=== PATIENT | female | born 2000 | race Caucasian/White ===

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

== ENCOUNTER 2018-01-13 09:45 | Emergency (ER) | payer OTHER, MEDICAID, SELFPAY ==
[2018-01-13 09:46] VITALS: BP 112/65; PULSE 89; RESP 18; TEMP 36.6; O2SAT 99; BMI 29.5
--- NOTE | 2018-01-13 10:04 | ED.VISSUMM ---
- ER Visit Summary Date of Service: 01/13/18 Chief Complaint: Sore throat History of Present Illness: The patient is a 17 F who has had 4 days of a sore throat. It is worse with swallowing. She has noted swollen tonsils. She has also had a nonproductive cough. No fevers at home. She has been trying leqf-rbq-xupixev medications without any relief. Physical Examination: Vital signs reviewed. HEENT exam reveals posterior oropharyngeal erythema with tonsillar swelling. No exudates are seen. Her neck is supple without lymphadenopathy. Heart is regular rate and rhythm. Lungs clear to auscultation. Abdomen soft nontender. Neurologic exam normal. Test Results: Rapid strep test is negative Emergency Department Course and Treatment: Rapid strep is negative. Patient will be treated with Mucinex D at home. She will follow-up with her PCP Treatment Plan: [] Disposition: Discharge Impression: Viral pharyngitis This note was generated with [employer] dictation software. It may contain incorrect words, spelling, and punctuation that were not noted in review of the chart prior to signing ED Disposition - Plan for ED Patient: Chief Complaint: Sore Throat Referrals: Esperanza Whittaker MD [Primary Care Provider] -
--- NOTE | 2018-01-13 10:22 | NURSING ---
NO LW OR POA
--- NOTE | 2018-01-13 11:11 | ED.DEP ---
ED Disposition - Plan for ED Patient: Disposition: Home or Assisted Living Chief Complaint: Sore Throat Instructions: ED Pharyngitis Viral Prescriptions: Guaifenesin/Pseudoephedrne HCl [Mucinex D ER 1,200-120 mg Tab] 1 ea PO BID #14 tab.er.[id number] Referrals: Esperanza Whittaker MD [Primary Care Provider] -
== END 2018-01-13 11:41 | disposition home or self-care (01) ==
PROVIDERS: Emergency Provider Emergency Medicine; Family Provider Pediatrics; PCP Pediatrics
DX: J02.9 Acute pharyngitis, unspecified (principal); Z72.0 Tobacco use
CPT/HCPCS: 87880; 99282

== ENCOUNTER 2018-03-11 00:20 | Emergency (ER) | payer OTHER, MEDICAID, SELFPAY ==
[2018-03-11 00:21] VITALS: BP 99/64; PULSE 82; RESP 18; TEMP 36.7; O2SAT 98; BMI 34.0
--- NOTE | 2018-03-11 00:38 | ED.DCSUM_ITS ---
- ER Visit Summary Date of Service: 03/11/18 Chief Complaint: Headache History of Present Illness: The patient is a 17 F who presents with a head injury and moderate headache. She states that she was walking and hit her head on a cabinet. This occurred about 5 hours before presentation. She currently complains of a diffuse headache which she rates 6 out of 10. There was no loss of consciousness or amnesia. She is not anticoagulated. She denies nausea or vomiting. Physical Examination: Afebrile vitals normal Moist mucous membranes Heart regular rate and rhythm Lungs clear GCS is 15 with no focal or lateralizing neurological deficits Pupils are equally round reactive to light No evidence of basilar skull fracture such as raccoon eyes hemotympanum or salcedo sign No evidence of trauma such as lacerations contusions hematoma or abrasion. No palpable skull fracture Test Results: Not indicated Emergency Department Course and Treatment: Patient is [place] head CT rule negative. The [facility] clinical policy on minor TBI would also suggest that imaging is not indicated. I believe the risk of radiation from a CT is higher than potential benefit given very low clinical suspicion for skull fracture or intracranial hemorrhage. She was advised that she has signs consistent with a concussion. She was advised on supportive care including brain rest. She was instructed on specific signs and symptoms to monitor for and conditions under which return to the emergency department. All questions answered bedside. Patient agreeable to this plan was discharged home. Treatment Plan: [] Disposition: Discharge Impression: Closed head injury with concussion This note was generated with [employer] dictation software. It may contain incorrect words, spelling, and punctuation that were not noted in review of the chart prior to signing ED Disposition - Plan for ED Patient: Chief Complaint: Headache Referrals: Esperanza Whittaker MD [Primary Care Provider] -
--- NOTE | 2018-03-11 00:38 | ED.DEP ---
ED Disposition - Plan for ED Patient: Chief Complaint: Headache Instructions: ED Concussion Referrals: Esperanza Whittaker MD [Primary Care Provider] -
[2018-03-11 00:45] VITALS: PULSE 82; RESP 18
== END 2018-03-11 00:46 | disposition home or self-care (01) ==
LOC: ED 00:35
PROVIDERS: Emergency Provider Emergency Medicine; Family Provider Pediatrics; PCP Pediatrics
DX: S06.0X0A Concussion without loss of consciousness, initial encounter (principal); W22.8XXA Striking against or struck by other objects, initial encounter; Y93.9 Activity, unspecified; Y92.9 Unspecified place or not applicable; Y99.9 Unspecified external cause status; R05 Cough; Z72.0 Tobacco use
CPT/HCPCS: 99282

== ENCOUNTER 2018-04-02 02:02 | Emergency (ER) | payer OTHER, MEDICAID, SELFPAY ==
[2018-04-02 02:03] VITALS: BP 124/68; PULSE 86; RESP 16; TEMP 36.6; O2SAT 97; BMI 32.5
[2018-04-02] MEDS: predniSONE 20 MG Tablet 40 MG PO (02:16)
[2018-04-02] MEDS: hydrOXYzine 10 MG Tablet PO (02:17)
[2018-04-02 02:25] LABS: Absolute Lymphocyte Count 4.49 X10^3/ul (0.83-4.51); Absolute Neutrophil Count 9.9 X10^3/uL (2.0-7.7); Basophil# 0.09 X10^3/uL; Basophil% 0.6 % (0-1); Eosinophil# 0.26 X10^3/uL; Eosinophils% 1.6 % (0-5); Hematocrit 42.1 % (37-47); Hemoglobin 14.1 g/dl (12.0-15.0); Lymphocyte # 4.49 X10^3/ul (4.0); Lymphocyte % 28.2 % (19-41); Mean Corp Hgb Conc 33.5 g/gl (32-36); Mean Corpuscular Hgb 30.1 pg (27.0-32.0); Mean Corpuscular Volume 89.8 fL (81-99); Mean Platelet Vol. 10.8 fl (6.2-12.0); Monocyte# 1.17 X10^3/uL; Monocyte% 7.3 % (0-10); Neutrophil # 9.89 X10^3/uL (2.7-7.7); Neutrophil % 62.1 % (47-70); POSITIVE COUNT NO; POSITIVE DIFFERENTIAL NO; POSITIVE MORPHOLOGY NO; Platelet Count 281 K/mm3 (150-450); RBC Distribution Width CV 12.8 % (11.6-14.6); RBC Distribution Width SD 41.8 fl (35.1-43.9); Red Blood Count 4.69 M/mm3 (4.2-5.4); White Blood Count 15.9 K/mm3 (4.4-11.0)
[2018-04-02 02:41] LABS: AST(SGOT) 16 U/L (15-37); Alanine Aminotransfer ALT/SGPT 20 U/L (13-56); Albumin, Serum 3.8 g/dL (3.2-5.0); Alkaline Phosphatase 84 U/L (45-117); Anion Gap 8 (5-15); BUN 16 mg/dL (7-18); BUN/Creat Ratio 17.7 RATIO (10-20); Calcium,Total 8.8 mg/dL (8.5-10.1); Chloride 106 mmol/L (98-107); Creatinine, Serum 0.91 mg/dL (0.55-1.02); EST Glomerular Filtration Rate 85 mL/min (>60); Est Glom Filt Rate - Afr Amer 103 mL/min (>60); Estimated Creatinine Clearance 82.25 ml/min; Globulin 3.9 g/dL (2.2-4.2); Glucose 118 mg/dL (74-106); Potassium 3.5 mmol/L (3.5-5.1); Protein, Total 7.7 g/dL (6.4-8.2); Sodium Level 140 mmol/L (136-145)
--- NOTE | 2018-04-02 03:15 | ED.DCSUM_ITS ---
- ER Visit Summary Date of Service: 04/02/18 Chief Complaint: [Rash] History of Present Illness: The patient is a 17 F [presents the emergency department complaint of a rash that started 2 weeks ago. Patient states the rash is very pruritic. Initially they noted that he had changed laundry detergent but then switched back to the old when they were using. Patient denies any new medications. She denies any new soaps. She not had any fever however she has had a slight cough. She describes the rash is pruritic and involving the upper extremities as well as the periumbilical abdomen. Her legs H but there is no rash on her legs. Nobody else at home has the same rash.] Physical Examination: [HEENT-PERRLA, EOMI. Cranial nerves II through XII grossly intact. TMs clear. Mucous membranes moist. No adenopathy. Cardiovascular-regular rate and rhythm without murmur or ectopy Lungs-clear to auscultation, chest wall stable without crepitus or subcu emphysema Abdomen-normoactive bowel sounds, soft, nontender, no rebound or rigidity, no peritoneal signs. Skin exam-patient has a erythematous papular rash involving the upper extremities including the wrists and entered digital region of her hands. Patient has periumbilical lesions as well. In areas where she is scratched there is some ecchymotic almost bruised lesions noted. I suspect these lesions are from scratching and trauma. Extremities-intact ?4, normal range of motion, normal pulses, atraumatic] Test Results: [CBC with differential obtained showed a slightly elevated white blood cell count of 15.9, hemoglobin 14, hematocrit 42, platelets 281. Chemistries unremarkable. LFTs were normal.] Emergency Department Course and Treatment: [She was made given prednisone and Atarax.] Treatment Plan: [I will treat with prednisone and Atarax but I will also add treatment for scabies.] Disposition: [Discharged home in stable condition]. Patient will be referred to dermatology for follow-up if symptoms do not improve. Impression: [Dermatitis-etiology uncertain] This note was generated with [employer] dictation software. It may contain incorrect words, spelling, and punctuation that were not noted in review of the chart prior to signing ED Disposition - Plan for ED Patient: Chief Complaint: Rash Referrals: Esperanza Whittaker MD [Primary Care Provider] -
--- NOTE | 2018-04-02 03:17 | ED.DEP ---
ED Disposition - Plan for ED Patient: Chief Complaint: Rash Instructions: ED Dermatitis Non Specific Rash, Scabies Prescriptions: hydrOXYzine tablet [Atarax tablet] 10 mg PO 4X/DAY PRN PRN #20 tab PRN Reason: Itching Permethrin [Elimite] 60 gm TP X1 #1 cream..g. Prednisone [Deltasone] 20 mg PO BID #10 tab Referrals: Cristobal Wright MD [STAFF PHYSICIAN] - 5-7 Days
== END 2018-04-02 03:28 | disposition home or self-care (01) ==
PROVIDERS: Emergency Provider Emergency Medicine; Family Provider Pediatrics; PCP Pediatrics
DX: L30.9 Dermatitis, unspecified (principal); R05 Cough; Z72.0 Tobacco use
CPT/HCPCS: 36415; 80053; 85025; 99283

== ENCOUNTER 2018-04-11 22:53 | Emergency (ER) | payer OTHER, MEDICAID, SELFPAY ==
[2018-04-11 22:53] VITALS: BP 116/73; PULSE 74; RESP 16; TEMP 36.3; O2SAT 99; BMI 30.9
--- NOTE | 2018-04-11 23:08 | ED.DCSUM_ITS ---
- ER Visit Summary Date of Service: 04/11/18 Chief Complaint: Abdominal pain History of Present Illness: The patient is a 17 F who presents with abdominal pain. Started 3 days ago. Is been intermittent in nature. Sharp in her suprapubic area. It does not radiate. She had vomiting and diarrhea yesterday but none today. No urinary symptoms. Denies fevers. No history of abdominal surgeries in the past. She tried Aleve without any relief. Physical Examination: Vital signs reviewed. HEENT exam unremarkable. Heart is regular rate and rhythm without murmurs. Lungs are clear to auscultation. Abdomen is soft with tenderness in the suprapubic area. Extremities reveal no edema. Skin exam normal. Neurologic exam normal. Test Results: negative. Urinalysis reveals 25-50 white blood cells Emergency Department Course and Treatment: Patient was given Tylenol for pain. She will be treated with Bactrim for her UTI. She will follow-up with her PCP Treatment Plan: [] Disposition: Discharge Impression: Cystitis This note was generated with [employer] dictation software. It may contain incorrect words, spelling, and punctuation that were not noted in review of the chart prior to signing ED Disposition - Plan for ED Patient: Chief Complaint: Abd Pain Referrals: Esperanza Whittaker MD [Primary Care Provider] -
[2018-04-11] MEDS: Acetaminophen 500 MG Tablet 1000 MG PO (23:18)
[2018-04-11 23:33] LABS: Bacteria 0 SEEN /hpf (None Seen); Red Blood Cells-Urine 0 SEEN /hpf (0-5)
[2018-04-11 23:43] LABS: Color, Urine Yellow (Yellow); Glucose, Dipstick Normal (Normal); Internal QC Validated? YES +Cl - CLEAR BKGD; Ketone-Dipstick 5 mg/dl (Negative); Leukocyte Esterase-Dipstick 500 /ul (Negative); Nitrite-Dipstick Negative (Negative); Occult Blood-Urine 25 /ul (Negative); Pregnancy, Urine Negative Negative; Protein-Dipstick 30 mg/dl (Negative); Urine Bilirubin Dipstick Negative (Negative); Urine Clarity Cloudy (Clear); Urine Urobilinogen 1 mg/dl (Normal)
[2018-04-12 00:04] LABS: Mucous, Urine 1+ /hpf (<or=2+); Squamous Epithelial Cells - UA > 100 SEEN /hpf (5-10); White Blood Cells 25-50 SEEN /hpf (0-5)
--- NOTE | 2018-04-12 00:16 | ED.DEP ---
ED Disposition - Plan for ED Patient: Disposition: Home or Assisted Living Chief Complaint: Abd Pain Instructions: ED UTI Cystitis Female Prescriptions: Smz/Tmp Ds [Bactrim Ds] 1 tab PO BID #6 tab Referrals: Esperanza Whittaker MD [Primary Care Provider] -
[2018-04-12] MEDS: Smz/Tmp Ds Tablet 1 TABLET PO (00:30)
== END 2018-04-12 00:31 | disposition home or self-care (01) ==
PROVIDERS: Emergency Provider Emergency Medicine; Family Provider Pediatrics; PCP Pediatrics
DX: N30.90 Cystitis, unspecified without hematuria (principal); R11.2 Nausea with vomiting, unspecified; Z72.0 Tobacco use
CPT/HCPCS: 81001; 81025; 99283

== ENCOUNTER 2018-09-09 23:07 | Emergency (ER) | payer OTHER, MEDICAID, SELFPAY ==
[2018-06-10 13:12] VITALS: BMI 30.9
[2018-09-09 23:08] VITALS: BP 136/75; PULSE 99; RESP 16; TEMP 36.9; O2SAT 98; BMI 33.0
[2018-09-09 23:28] LABS: Bacteria 0 SEEN /hpf (None Seen); Mucous, Urine 0 SEEN /hpf (<or=2+); Red Blood Cells-Urine 0 SEEN /hpf (0-5)
[2018-09-09 23:35] LABS: Color, Urine Yellow (Yellow); Glucose, Dipstick Normal (Normal); Ketone-Dipstick Negative (Negative); Leukocyte Esterase-Dipstick 500 /ul (Negative); Nitrite-Dipstick Negative (Negative); Occult Blood-Urine Negative /ul (Negative); Protein-Dipstick Negative (Negative); Specific Gravity, Urine 1.025 (1.002-1.030); Urine Bilirubin Dipstick Negative (Negative); Urine Clarity Clear (Clear); Urine Urobilinogen 1 mg/dl (Normal)
--- NOTE | 2018-09-09 23:36 | ED.VISSUMM ---
- ER Visit Summary Date of Service: 09/09/18 Chief Complaint: Abdominal pain History of Present Illness: The patient is a 17 F who notes a sharp stabbing suprapubic abdominal pain that radiates bilaterally to lower quadrants. She notes constant. No nausea vomiting. Normal bowel movement today. No urinary symptoms. No fevers. Occasionally worse with walking. Normal p.o. intake. Patient has a phobia of needles and would like to avoid them. Physical Examination: Afebrile vital signs stable Gen: Well-nourished well-developed Head: Normocephalic atraumatic Eyes: Perrl EOMI ENT: TMs clear no rhinorrhea moist mucous membranes Neck: Supple no lymphadenopathy no JVD nontender CVS: Regular rate rhythm no murmurs normal S1-S2 Respiratory: No distress clear to auscultation bilaterally chest nontender Abdomen: Soft tender to palpation in the suprapubic and right lower and left lower quadrants. No guarding or rebound nondistended normal bowel sounds no masses Back: Nontender Extremity: Nontender no edema Skin: Normal color no rash Neuro: alert orientated ?3 CN II-XII intact normal strength sensation reflexes gait cerebellar Psych: Normal affect normal mood Test Results: Urinalysis with some contamination but no infection. CT flank study no ureterolithiasis or appendicitis. There was a 2.2 cm likely ovarian cyst on the right. Emergency Department Course and Treatment: Patient has been resting very comfortably. I would recommend ibuprofen. She does not have a health administration teacher but she states that she has a list of physicians at home that she will follow-up with. Patient is comfortable with the plan. Impression: 1. Right ovarian cyst This note was generated with [employer] dictation software. It may contain incorrect words, spelling, and punctuation that were not noted in review of the chart prior to signing ED Disposition - Plan for ED Patient: Disposition: Home or Assisted Living Instructions: ED Cyst Ovarian Additional Instructions: I would recommend follow-up with gynecology I recommend Motrin 600 800 mg every 6-8 hours as needed
[2018-09-09 23:40] LABS: Internal QC Validated? YES +Cl - CLEAR BKGD; Pregnancy, Urine Negative Negative
[2018-09-09 23:41] LABS: White Blood Cells 5-10 SEEN /hpf (0-5)
[2018-09-09 23:42] LABS: Squamous Epithelial Cells - UA 25-50 SEEN /hpf (5-10)
--- NOTE | 2018-09-09 23:45 | CT_ITS ---
STUDY: CT ABDOMEN AND PELVIS WITHOUT CONTRAST REASON FOR EXAM: Female, 17 years old. Lower abdominal pain RADIATION DOSAGE (If Supplied By Facility): CTDIvol = ( 9.46 ) mGy, DLP = ( 508.24 ) mGycm TECHNIQUE: Transaxial images were obtained from the dome of the diaphragm to the symphysis pubis without oral contrast, and without intravenous contrast. Sagittal and coronal images were reconstructed. Individualized dose optimization techniques were used for this CT. COMPARISON: None. FINDINGS: Evaluation is limited by lack of IV and oral contrast material. The visualized lung bases are unremarkable. The visualized portions of the heart are within normal limits. Normal unenhanced liver. Normal unenhanced gallbladder and extrahepatic biliary system. Borderline splenomegaly 13 cm. Normal unenhanced pancreas. Normal unenhanced bilateral adrenal glands. Normal unenhanced right kidney. Normal unenhanced left kidney. Normal unenhanced visualized stomach. Normal unenhanced small intestine. Normal unenhanced colon. The appendix is visualized and appears normal. Normal unenhanced abdominal aorta. Normal unenhanced inferior vena cava. Normal retroperitoneum. Normal unenhanced urinary bladder. Tiny amount of fluid within the pelvis. 2.2 cm low-attenuation structure within the right adnexa likely ovarian. Pelvic ultrasound may be performed to further evaluate as clinically indicated. There is a small umbilical hernia containing fat. Normal osseous structures. CT/Abdomen/Pelvis without Cont IMPRESSION: No hydronephrosis or nephrolithiasis. Borderline splenomegaly. No CT evidence for acute appendicitis or diverticulitis. Tiny amount of fluid within the pelvis. Small low-attenuation structure right adnexa likely ovarian. Be further evaluated with pelvic ultrasound as clinically indicated. Other findings as discussed above. Electronically Signed: Valentin Santiago, at 0:22 EDT Tel , Service support ,
[2018-09-10 00:31] VITALS: BP 132/60; PULSE 79; RESP 18; O2SAT 98
== END 2018-09-10 00:31 | disposition home or self-care (01) ==
PROVIDERS: Emergency Provider Emergency Medicine; Family Provider Pediatrics; PCP Pediatrics
DX: N83.201 Unspecified ovarian cyst, right side (principal); Z72.0 Tobacco use
CPT/HCPCS: 74176; 81001; 81025; 99282

== ENCOUNTER 2019-02-21 12:01 | Emergency (ER) | payer SELFPAY ==
[2018-10-13 12:48] VITALS: BMI 33.0
[2019-02-21 12:02] VITALS: BP 131/86; PULSE 72; RESP 17; TEMP 36.8; O2SAT 96; BMI 32.9
[2019-02-21 12:52] LABS: Absolute Lymphocyte Count 3.94 X10^3/uL (0.83-4.51); Absolute Neutrophil Count 5.2 X10^3/uL (2.0-7.7); Basophil# 0.07 X10^3/uL; Basophil% 0.7 % (0-1); Eosinophil# 0.11 X10^3/uL; Eosinophils% 1.1 % (0-5); Hematocrit 43.5 % (37-47); Hemoglobin 14.1 g/dL (12.0-15.0); Lymphocyte # 3.94 X10^3/ul (4.0); Mean Corp Hgb Conc 32.4 g/dL (32-36); Mean Corpuscular Hgb 30.1 pg (27.0-32.0); Mean Corpuscular Volume 92.9 fL (81-99); Mean Platelet Vol. 10.7 fl (6.2-12.0); Monocyte# 0.71 X10^3/uL; NRBC Flagged by Analyzer 0 % (0-5); Neutrophil # 5.21 X10^3/uL (2.7-7.7); Neutrophil % 51.5 % (47-70); Platelet Count 234 K/mm3 (150-450); RBC Distribution Width CV 12.5 % (11.6-14.6); RBC Distribution Width SD 42.5 fl (35.1-43.9); Red Blood Count 4.68 M/mm3 (4.2-5.4); White Blood Count 10.1 K/mm3 (4.4-11.0)
[2019-02-21 12:57] LABS: Internal QC Validated? YES +Cl - CLEAR BKGD; Pregnancy, Serum, hCG Quali. NEGATIVE Negative
[2019-02-21 13:01] LABS: Mucous, Urine 0 SEEN /hpf (<or=2+); Red Blood Cells-Urine 0 SEEN /hpf (0-5)
[2019-02-21 13:05] LABS: Color, Urine Yellow (Yellow); Glucose, Dipstick Normal (Normal); Ketone-Dipstick 5 mg/dl (Negative); Leukocyte Esterase-Dipstick 500 /ul (Negative); Nitrite-Dipstick Negative (Negative); Occult Blood-Urine 25 /ul (Negative); Protein-Dipstick 15 mg/dl (Negative); Urine Bilirubin Dipstick Negative (Negative); Urine Clarity Sl. Cloudy (Clear); Urine Urobilinogen Normal (Normal); Urine pH 6.5 (5.0 - 8.0)
[2019-02-21 13:23] LABS: Bacteria 2+ /hpf (None Seen); Squamous Epithelial Cells - UA 10-25 SEEN /hpf (5-10); White Blood Cells 25-50 SEEN /hpf (0-5)
--- NOTE | 2019-02-21 13:39 | ED.VISSUMM ---
- ER Visit Summary Date of Service: 02/21/19 Chief Complaint: [Abdominal pain] History of Present Illness: The patient is a 18 F [resents to the emergency department with abdominal pain that started 2 days ago. Patient describes intermittent pain that lasts anywhere from 15 to 30 minutes. Patient states pain is crampy and sharp at times. Patient denies any nausea or vomiting. Denies any blood in her stool or black tarry stools. States that she is late on her menstrual period and that her last period was the end of December. Patient states that she took 2 home tests and both initially were negative but then later in the day or the following morning it looked as if though they may be positive and patient comes in for evaluation. Patient is G0, P0. Has any vaginal discharge or abnormal bleeding.] Physical Examination: [HEENT-PERRLA, EOMI. Cranial nerves II through XII grossly intact. TMs clear. Mucous membranes moist. No adenopathy. Cardiovascular-regular rate and rhythm without murmur or ectopy Lungs-clear to auscultation, chest wall stable without crepitus or subcu emphysema Abdomen-normoactive bowel sounds, soft, nontender, no rebound or rigidity, no peritoneal signs. Extremities-intact ?4, normal range of motion, normal pulses, atraumatic] Test Results: [CBC with differential obtained was normal. hCG serum was negative. Urinalysis obtained showed 500 leukocyte esterase as well as 25-50 WBCs and 10-25 epis as well as +2 bacteria.] Emergency Department Course and Treatment: [She was treated with Bactrim DS 1 tablet p.o.] Treatment Plan: [Follow-up with her primary care physician within next 3 to 5 days. Patient will be given a prescription for Bactrim for 3 days.] Disposition: [Discharged home in stable condition] Impression: [UTI Abdominal pain] This note was generated with [employer] dictation software. It may contain incorrect words, spelling, and punctuation that were not noted in review of the chart prior to signing ED Disposition - Plan for ED Patient: Referrals: Esperanza Whittaker MD [Primary Care Provider] -
--- NOTE | 2019-02-21 13:42 | ED.DEP ---
ED Disposition - Plan for ED Patient: Instructions: ABDOMINAL PAIN, Unknown Cause, (Female), Bladder Infection, Female (Adult) Prescriptions: Smz/Tmp Ds [Bactrim Ds] 1 tab PO BID #6 tab Prescription Printed Referrals: Esperanza Whittaker MD [Primary Care Provider] - 3-5 Days
[2019-02-21 13:53] VITALS: RESP 15
[2019-02-21] MEDS: Smz/Tmp Ds Tablet 1 TABLET PO (13:53)
== END 2019-02-21 13:56 | disposition home or self-care (01) ==
LOC: ED 12:54
PROVIDERS: Emergency Provider Emergency Medicine; Family Provider Pediatrics; PCP Pediatrics
DX: N39.0 Urinary tract infection, site not specified (principal); R10.9 Unspecified abdominal pain; Z72.0 Tobacco use
CPT/HCPCS: 81001; 84703; 85025; 99284; A4216

== ENCOUNTER → 2020-06-05 | Outpatient (CLI) | payer MEDICAID, SELFPAY ==
[2020-06-05 10:10] VITALS: BMI 29.5
[2020-06-05 13:49] LABS: Amphetamine Urine VISTA NEGATIVE (<1000 ng/mL); Barbiturate Urine VISTA NEGATIVE (< 200 ng/mL); Benzodiazepine Urine VISTA NEGATIVE (< 200 ng/mL); Cocaine Urine VISTA NEGATIVE (< 300 ng/mL); Ecstacy Urine VISTA NEGATIVE (< 500 ng/mL); Methadone Urine VISTA NEGATIVE (< 300 ng/mL); PCP Urine VISTA NEGATIVE (< 25 ng/mL); THC Urine VISTA POSITIVE (< 50 ng/mL); Vista UDS pH Range 5
[2020-06-07 20:08] LABS: Chlamydia By Nucleic Acid AMP Positive (Negative)
[2020-06-07 20:39] LABS: Gonococcus By Nucleic Acid AMP Negative (Negative)
== END | disposition home or self-care (01) ==
PROVIDERS: Obstetrics & Gynecology; PCP Pediatrics; Visit Provider Obstetrics & Gynecology
DX: Z34.90 Encounter for supervision of normal pregnancy, unspecified, unspecified trimester (principal)
CPT/HCPCS: 80307; 87086; 87088; 87491; 87591

== ENCOUNTER → 2020-06-14 13:58 | Outpatient (CLI) | payer MEDICAID, SELFPAY ==
[2020-06-05 10:10] VITALS: BMI 29.5
[2020-06-14 14:49] LABS: Absolute Lymphocyte Count 4.23 X10^3/uL (0.83-4.51); Basophil# 0.06 X10^3/uL; Basophil% 0.5 % (0-1); Eosinophil# 0.12 X10^3/uL; Hematocrit 37.6 % (37-47); Hemoglobin 12.6 g/dL (12.0-15.0); Lymphocyte # 4.23 X10^3/ul (4.0); Lymphocyte % 34.3 % (19-41); Mean Corp Hgb Conc 33.5 g/dL (32-36); Mean Corpuscular Hgb 30.7 pg (27.0-32.0); Mean Corpuscular Volume 91.5 fL (81-99); Mean Platelet Vol. 10.8 fl (6.2-12.0); Monocyte# 0.79 X10^3/uL; Monocyte% 6.4 % (0-10); NRBC Flagged by Analyzer 0 % (0-5); Neutrophil # 7.03 X10^3/uL (2.7-7.7); Neutrophil % 57.1 % (47-70); Platelet Count 204 K/mm3 (150-450); RBC Distribution Width SD 42.5 fl (35.1-43.9); Red Blood Count 4.11 M/mm3 (4.2-5.4); White Blood Count 12.3 K/mm3 (4.4-11.0)
[2020-06-14 15:43] LABS: HIV - WCH Non-Reactive (Nonreactive); Hepatitis B Surface Antigen Non-Reactive (Nonreactive); Hepatitis C Antibody Non-Reactive (Nonreactive); Rubella IgG Reactive (Nonreactive)
[2020-06-14 18:56] LABS: Neisserai gonorrhoeae by PCR Negative (Negative); Probe Check PASS
[2020-06-14 18:57] LABS: Chlamydia Trachomatis by PCR POSITIVE (Negative)
[2020-06-15 03:40] LABS: Rapid Plasmin Reagin (RPR) NONREACTIVE (NONREACTIVE)
== END ==
PROVIDERS: Obstetrics & Gynecology; PCP Pediatrics; Referring Provider Obstetrics & Gynecology; Visit Provider Obstetrics & Gynecology
DX: Z34.81 Encounter for supervision of other normal pregnancy, first trimester (principal); Z31.430 Encounter of female for testing for genetic disease carrier status for procreative management
CPT/HCPCS: 36415; 85025; 86592; 86703; 86762; 86803; 86850; 86900; 86901; 87340; 87491; 87591

== ENCOUNTER 2020-06-25 23:46 | Emergency (ER) | payer MEDICAID, SELFPAY ==
[2020-06-05 10:10] VITALS: BMI 29.5
[2020-06-25 23:48] VITALS: BP 140/85; PULSE 110; RESP 16; TEMP 36.8; O2SAT 97; BMI 31.9
--- NOTE | 2020-06-26 00:22 | ED.DCSUM_ITS ---
History of Present Illness Chief Complaint: Vag Bld, Preg Informant: Patient Issue: Vaginal bleeding. Negative for: Passing clots, Passing tissue Onset: Today Context: Sudden Onset - when wiped after urinating Timing: Intermittent Current Severity: Spotting Maximum Severity: Spotting Associated Symptoms: Negative for: Dysuria, Frequency, Urgency, Hematuria P: 0 Ab: 0 Narrative: Patient states she is about 14 weeks, she started spotting tonight and became scared, she denies having any pain, lightheadedness, near syncope, or any other symptoms or recent illness. This is her first . She does not know her blood type. 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 Comment: FOB needs tested Past Medical History - Allergies and Home Meds Allergies/Adverse Reactions: Allergies amoxicillin trihydrate [From Augmentin] Adverse Reaction (Verified 06/25/20 23:47) Nausea potassium clavulanate [From Augmentin] Adverse Reaction (Verified 06/25/20 23:47) Nausea Primary Care Physician: Esperanza Whittaker MD [Primary Care Provider] - Surgical History: myringotomy Smoking Status: Never smoker Review of Systems General: Denies: Chills, Fever, Sweats Eyes: Denies: Visual changes - bilaterally, Diplopia ENT: Denies: Rhinorrhea, Sore throat Cardiovascular: Denies: Chest pain, Palpitations Respiratory: Denies: Dyspnea, Cough, Dyspnea on exertion Gastrointestinal: Denies: Abdominal pain, Nausea, Vomiting, Diarrhea, Melena, Hematochezia Genitourinary: Reports: - - vaginal spotting. Denies: Dysuria, Hematuria, Frequency Musculoskeletal: Denies: Myalgias, Back pain, Swelling, Extremity Pain Skin: Denies: Rash, Wounds Neurological: Denies: Headache, Weakness, Numbness Physical Exam Vital Signs/Narrative: Vital Signs Temp Pulse Resp BP Pulse Ox 06/25/20 23:48 98.3 F 110 H 16 140/85 H 97 Inital Vital Signs reviewed: Yes General: Well nourished, Well developed Head: Normocephalic, Atraumatic Eyes: Perrl, EOMI ENT: Moist mucous membranes, No rhinorrhea Neck: Supple, Nontender Cardiovascular: Regular rate, Regular rhythm, No murmurs, Tachycardia - mild Respiratory: No distress, CTA bilaterally, Chest nontender Abdomen: Soft, Nontender, Nondistended, Normal bowel sounds Back: Nontender, Normal Inspection. Negative for: CVA tenderness Extremities: Nontender, No edema Skin: Normal color, No rash, No Trauma Neurological: Alert, Oriented x3, Cranial nerves II-XII grossly intact, Normal Strength, Normal Sensation, Normal Gait Psychological: Normal Mood, - - anxious Diagnostic/Tx/Re-eval - Medical Decision/Diagnostic Studies Bedside ultrasound performed by myself shows single live intrauterine , active, with heart rate 150. 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 Her blood type is in the system already, she is a positive so RhoGam is not indicated. We discussed reasons to return and she is comfortable with this plan. ED Disposition - Plan for ED Patient: Disposition: Home or Assisted Living Diagnosis: Threatened in second trimester Instructions: ED Possible Miscarriage ... Referrals: Elma Velasco MD [STAFF PHYSICIAN] - (1-5 days -- call for appt)
== END 2020-06-26 00:36 | disposition home or self-care (01) ==
LOC: ED 06-26 00:30
PROVIDERS: Emergency Provider Emergency Medicine; PCP Pediatrics
DX: O20.0 Threatened abortion (principal); Z14.1 Cystic fibrosis carrier; Z3A.14 14 weeks gestation of pregnancy
CPT/HCPCS: 99282

== ENCOUNTER → 2020-08-03 | Outpatient (CLI) | payer MEDICAID, SELFPAY ==
[2020-08-03 09:59] VITALS: BMI 35.4
[2020-08-03 16:13] LABS: Chlamydia Trachomatis by PCR POSITIVE (Negative); Neisserai gonorrhoeae by PCR Negative (Negative); Probe Check PASS
== END | disposition home or self-care (01) ==
LOC: LABSPEC 12:11
PROVIDERS: PCP Pediatrics; Referring Provider Obstetrics & Gynecology; Visit Provider Obstetrics & Gynecology
DX: Z34.90 Encounter for supervision of normal pregnancy, unspecified, unspecified trimester (principal)
CPT/HCPCS: 87491; 87591

== ENCOUNTER 2020-08-05 17:54 | Emergency (ER) | payer MEDICAID, SELFPAY ==
[2020-08-03 09:59] VITALS: BMI 35.4
[2020-08-05 17:55] VITALS: BP 121/63; PULSE 107; RESP 16; TEMP 36.6; O2SAT 97; BMI 35.4
--- NOTE | 2020-08-05 18:06 | US_ITS ---
STUDY: SECOND AND THIRD TRIMESTER OBSTETRICAL ULTRASOUND - LIMITED REASON FOR EXAM: Female, 19 years old fell down 10 steps onto left side. LMP: 03/20/2020 PRIOR ULTRASOUND: None. TECHNIQUE: Transabdominal TECHNICAL QUALITY: Adequate. FINDINGS: There is a single intrauterine fetus. The fetus is in a breech presentation. There is demonstrated cardiac activity with a heart rate of 149 bpm. There is a normal amniotic fluid volume. The largest amniotic fluid pocket measures 4.1 cm. The placenta is posterior in location and is not low lying. There are Grade 0 placental changes. The cervix measures 4.0 cm in length. BIOMETRY: BPD: 4.59 cm: 19 weeks, 6 days HC: 17.23 cm: 19 weeks, 5 days AC: 14.43 cm: 19 weeks, 5 days FL: 3.06 cm: 19 weeks, 3 days Age by LMP: 19 weeks, 5 days. SUSHMA by LMP: 12/25/2020. age by current US: 19 weeks, 5 days. SUSHMA by current US: 12/25/2020. Estimated weight: 306 grams, +/- 46 grams, 42 percentile. Gender: Male US/OB Limited With Biometrics IMPRESSION: 1. Live single intrauterine at 19 weeks, 5 days. SUSHMA is 12/25/2020. 2. EFW of 306 g. 3. Adequate amniotic fluid. 4. Posterior grade 0 placenta. There is no evidence of placental abruption. 5. Closed cervix at 4 cm length. 6. Breech presentation. Electronically Signed: Angelo Plata DO at 20:52 EST Tel [phone], Service support ,
--- NOTE | 2020-08-05 18:10 | ED.DCSUM_ITS ---
- ER Visit Summary Date of Service: 08/05/20 Chief Complaint: Fall History of Present Illness: The patient is a 19 F presenting after fall. Patient is 20 weeks , G1, P0. She states she slipped on steps and fell down approximately 10 steps. She slid on her left lower back and side. She denies vaginal bleeding or abdominal pain. She did not hit her head or lose consciousness. She complains of left ankle pain as well. She is able to ambulate. She denies other injuries. Physical Examination: Vitals are stable. Patient is afebrile. Alert no acute distress. HEENT exam is unremarkable. Neck is nontender Lungs are clear and equal bilaterally. Heart is regular rate and rhythm. Abdomen is soft gravid nontender Back: Left paraspinal lumbar muscle tenderness, no midline tenderness Extremities mild left ankle tenderness with no deformity Skin is warm and dry. Remainder of exam is unremarkable. Emergency Department Course and Treatment: She was given Tylenol. Blood type A positive. Left ankle x-ray shows negative left ankle x-rays. Abdominal ultrasound shows Normal ultrasound of the kidneys and urinary bladder. Normal appearing spleen. No other sonographic abnormality of the left upper abdomen. Pelvic ultrasound shows Live single intrauterine at 19 weeks, 5 days. SUSHMA is 12/25/2020. On reevaluation, patient is resting comfortably. Discussed with Dr. De La Fuente. Patient will follow up in the office. Advised return to the ED for worsening complaints. Disposition: Discharge home Impression: Status post mechanical fall, left flank pain, This note was generated with [employer] dictation software. It may contain incorrect words, spelling, and punctuation that were not noted in review of the chart prior to signing ED Disposition - Plan for ED Patient: Instructions: Care for a Healthy Baby, ED Mechanical Fall Referrals: Esperanza Whittaker MD [Primary Care Provider] - Elma Velasco MD [STAFF PHYSICIAN] -
[2020-08-05] MEDS: Acetaminophen 500 MG Tablet 1000 MG PO (18:13)
--- NOTE | 2020-08-05 18:14 | US_ITS ---
STUDY: RENAL ULTRASOUND - COMPLETE REASON FOR EXAM: Female, 19 years old. Fell down 10 steps onto left side. Patient is 20 weeks . TECHNIQUE: Ultrasound evaluation of the kidneys was performed with real-time and static lee-scale imaging. COMPARISON: None. FINDINGS: RIGHT KIDNEY: Normal location of the right kidney, which is normal in size. The right kidney measures 11.2 cm. There is a normal cortex of the right kidney. The renal cortex measures 1.9 cm. There is no right renal mass or cyst. There are no right renal calculi. There is no right hydronephrosis. DISTAL RIGHT URETER: There is non-visualization of the distal right ureter. There is no demonstrated right ureterovesical junction calculus. There is a visualized right ureteral jet. LEFT KIDNEY: Normal location of the left kidney, which is in the in size. The left kidney measures 12 point cm. There is a normal cortex of the left kidney. The renal cortex measures 2.1 cm. There is no left renal mass or cyst. There are no left renal calculi. There is no left hydronephrosis. DISTAL LEFT URETER: There is non-visualization of the distal left ureter. There is no demonstrated left ureterovesical junction calculus. There is a visualized left ureteral jet. The spleen measures 11.8 x 5 x 5.8 cm and is grossly unremarkable. BLADDER: The distended urinary bladder has a volume of 100 ml. There is a normal wall thickness of the distended urinary bladder. There is no demonstrated mass within the urinary bladder. There are no demonstrated bladder calculi. US/Kidney and Bladder IMPRESSION: 1. Normal ultrasound of the kidneys and urinary bladder. 2. Normal appearing spleen. 3. No other sonographic abnormality of the left upper abdomen. Electronically Signed: Angelo Plata DO at 20:59 EST Tel [phone], Service support ,
--- NOTE | 2020-08-05 18:15 | RAD_ITS ---
EXAM: XR LEFT ANKLE COMPLETE, 3 OR MORE VIEWS CLINICAL INDICATION: FALL DOWN STEPS, PAIN TECHNIQUE: Frontal, lateral and oblique views of the left ankle. This report was created using miCab report generation technology. COMPARISON: None. FINDINGS: BONES/JOINTS: Unremarkable. No acute fracture. No subluxation. Normal alignment. Preservation of the joint space. No sclerotic or destructive changes observed. SOFT TISSUES: Unremarkable. No soft tissue swelling or gas. No radiopaque foreign body. RAD/Ankle min 3 Views IMPRESSION: Negative left ankle x-rays. Electronically Signed: Sarkis Nicholson MD ([place]) at 18:32 EST , Service support ,
[2020-08-05 21:22] VITALS: BP 117/56; PULSE 90; RESP 16; TEMP 36.7; O2SAT 97
--- NOTE | 2020-08-05 21:56 | ED.DEP ---
ED Disposition - Plan for ED Patient: Instructions: ED Mechanical Fall, Care for a Healthy Baby Referrals: Esperanza Whittaker MD [Primary Care Provider] - Elma Velasco MD [STAFF PHYSICIAN] -
== END 2020-08-05 22:06 | disposition home or self-care (01) ==
LOC: ED 18:40
PROVIDERS: Emergency Provider Emergency Medicine; PCP Pediatrics
DX: O26.892 Other specified pregnancy related conditions, second trimester (principal); R10.9 Unspecified abdominal pain; M25.572 Pain in left ankle and joints of left foot; W10.9XXA Fall (on) (from) unspecified stairs and steps, initial encounter; Y93.9 Activity, unspecified; Y92.9 Unspecified place or not applicable; Y99.9 Unspecified external cause status; Z3A.20 20 weeks gestation of pregnancy
CPT/HCPCS: 73610; 76770; 76816; 86900; 86901; 99282

== ENCOUNTER → 2020-08-31 16:28 | Outpatient (CLI) | payer MEDICAID, SELFPAY ==
[2020-08-31 15:49] VITALS: BMI 36.1
[2020-08-31 17:20] LABS: Amphetamine Urine VISTA NEGATIVE (<1000 ng/mL); Barbiturate Urine VISTA NEGATIVE (< 200 ng/mL); Benzodiazepine Urine VISTA NEGATIVE (< 200 ng/mL); Cocaine Urine VISTA NEGATIVE (< 300 ng/mL); Ecstacy Urine VISTA NEGATIVE (< 500 ng/mL); Methadone Urine VISTA NEGATIVE (< 300 ng/mL); PCP Urine VISTA NEGATIVE (< 25 ng/mL); THC Urine VISTA POSITIVE (< 50 ng/mL); Vista UDS pH Range 5
[2020-08-31 19:55] LABS: Chlamydia Trachomatis by PCR POSITIVE (Negative); Neisserai gonorrhoeae by PCR Negative (Negative)
[2020-08-31 19:56] LABS: Probe Check PASS
== END ==
PROVIDERS: PCP Pediatrics; Referring Provider Obstetrics & Gynecology; Visit Provider Obstetrics & Gynecology
DX: O98.819 Other maternal infectious and parasitic diseases complicating pregnancy, unspecified trimester (principal); A74.9 Chlamydial infection, unspecified; O99.320 Drug use complicating pregnancy, unspecified trimester; F12.10 Cannabis abuse, uncomplicated; Z3A.00 Weeks of gestation of pregnancy not specified
CPT/HCPCS: 80307; 87491; 87591

== ENCOUNTER → 2020-09-27 09:32 | Outpatient (CLI) | payer MEDICAID, SELFPAY ==
[2020-08-31 15:49] VITALS: BMI 36.1
[2020-09-27 09:55] LABS: Absolute Lymphocyte Count 3.35 X10^3/uL (0.83-4.51); Absolute Neutrophil Count 6.6 X10^3/uL (2.0-7.7); Basophil# 0.05 X10^3/uL; Basophil% 0.5 % (0-1); Eosinophils% 0.9 % (0-5); Hematocrit 31.6 % (37-47); Hemoglobin 10.3 g/dL (12.0-15.0); Lymphocyte # 3.35 X10^3/ul (4.0); Lymphocyte % 30.8 % (19-41); Mean Corp Hgb Conc 32.6 g/dL (32-36); Mean Corpuscular Hgb 29.8 pg (27.0-32.0); Mean Corpuscular Volume 91.3 fL (81-99); Mean Platelet Vol. 12.2 fl (6.2-12.0); Monocyte# 0.64 X10^3/uL; Monocyte% 5.9 % (0-10); NRBC Flagged by Analyzer 0 % (0-5); Neutrophil # 6.55 X10^3/uL (2.7-7.7); Neutrophil % 60.1 % (47-70); POSITIVE COUNT YES; RBC Distribution Width CV 13.4 % (11.6-14.6); RBC Distribution Width SD 43.6 fl (35.1-43.9); Red Blood Count 3.46 M/mm3 (4.2-5.4); White Blood Count 10.9 K/mm3 (4.4-11.0)
[2020-09-27 09:57] LABS: Glucose Challenge Gest 1H 50g 149 mg/dL (70-140)
[2020-09-27 10:18] LABS: Differential Indicated SCAN CRITERIA MET
[2020-09-27 10:20] LABS: Platelet Estimate MOD DEC (ADEQ)
== END ==
PROVIDERS: PCP Pediatrics; Referring Provider Obstetrics & Gynecology; Visit Provider Obstetrics & Gynecology
DX: Z34.90 Encounter for supervision of normal pregnancy, unspecified, unspecified trimester (principal); Z13.1 Encounter for screening for diabetes mellitus
CPT/HCPCS: 36415; 82950; 85025

== ENCOUNTER → 2022-10-09 | Outpatient (CLI) | payer MEDICAID, SELFPAY | END | disposition home or self-care (01) | PROVIDERS: PCP Pediatrics; Visit Provider Physician Assistant | DX: J02.9 Acute pharyngitis, unspecified (principal) | CPT/HCPCS: 87880 ==

== ENCOUNTER → 2023-06-11 | Outpatient (CLI) | payer MEDICAID, SELFPAY ==
[2023-06-17 20:07] LABS: Chlamydia By Nucleic Acid AMP Negative (Negative); Gonococcus By Nucleic Acid AMP Negative (Negative)
== END | disposition home or self-care (01) ==
PROVIDERS: Visit Provider Obstetrics & Gynecology
DX: Z34.90 Encounter for supervision of normal pregnancy, unspecified, unspecified trimester (principal); Z3A.00 Weeks of gestation of pregnancy not specified
CPT/HCPCS: 87086; 87491; 87591

== ENCOUNTER 2023-07-16 01:19 | Emergency (ER) | payer MEDICAID, SELFPAY ==
[2023-07-16 01:22] VITALS: BP 129/73; PULSE 87; RESP 18; TEMP 36.6; O2SAT 97; BMI 36.3
[2023-07-16 01:31] VITALS: BP 127/65; PULSE 86; RESP 16; O2SAT 97
[2023-07-16 01:45] VITALS: BP 116/65; PULSE 73; RESP 16; O2SAT 97
--- OUTSIDE RECORDS SUMMARY | 2023-07-16 01:59 | XMS RPT_ITS | CCD ---
Author Name Unknown Address [address] [place] [address] Organization [facility] Care Team Providers Care Business Ethics Professor Name Role Phone Genet Link LPN Unavailable [phone] Tevin Sagastume Unavailable [phone] YANCI PATTERSON MD Consulting Unavailable STAR ELLINGTON Attending Unavailable STAR ELLINGTON Primary Care Unavailable STAR ELLINGTON Admitting Unavailable YANCI PATTERSON MD Referring Unavailable PROVIDER, UNKNOWN Consulting Unavailable Allergies Allergy Classification Reported Allergen(s) Allergy Type Date of Onset Reaction(s) Facility (1 source) Amoxicillin / Clavulanate Drug Allergy [facility] Repository Problems Problem Classification Problem Date Documented Da te Episodic/Chronic Medical examination/evaluation (2 sources) Encounter for pre-employment examination; Translations: [Encounter for pre-employment examination] Onset: 10-16-2016 10-16-2016 Episodic Results Test Name Value Interpretation Reference Range Facil ity Vital Signs Date Time Vital Sign Value Performing Clinician Faci lity 10-16-2016 14:03-0400 BMI (Body Mass Index) 32.59 kg/m2 Tevin PASTOR [facility] Work Phone: 10-16-2016 14:03-0400 Body Temperature 98.1 [degF] Tevin PASTOR [facility] Work Phone: 10-16-2016 14:03-0400 BP Diastolic 76 mm[Hg] Tevin PASTOR [facility] Work Phone: 10-16-2016 14:03-0400 BP Systolic 114 mm[Hg] Tevin Elmo PASTOR [facility] Work Phone: 10-16-2016 14:03-0400 Height 160.02 cm Tevin Borrego DARBY [facility] Work Phone: 10-16-2016 14:03-0400 Pulse (Heart Rate) 67 /min Tevin PASTOR [facility] Work Phone: 10-16-2016 14:03-0400 Pulse Oximetry 98 % Tevintessa PASTOR [facility] Work Phone: 10-16-2016 14:03-0400 Respiratory Rate 16 /min Tevin Elmo PASTOR [facility] Work Phone: 10-16-2016 14:03-0400 Weight 83.46 kg Tevin Posadasriley PASTOR [facility] Work Phone: Encounters Encounter Date Encounter Type Care Provider Facility Start: 05-26-2023 End: 05-26-2023 Emergency department patient visit YANCI WINN [facility] Procedures Date Procedure Procedure Detail Performing Clinician Start: 05-26-2023 Urinalysis YANCI KELLER Plan of Treatment Date Care Activity Detail Author Start: 10-16-2016 End: 10-16-2016 Appointment Appointment [facility] Work Phone: [facility] Work Phone: Payers Date Payer Category Payer Unknown [id number] Unknown [id number] Progress note 11-16-2020 Note Date & Type Note Facility 11-16-2020 Note HNO ID: [id number] Author: Clint Hernandez APRN.WATERWORKS OPERATOR Service: ? Author Type: Nurse Practitioner Type: Progress Notes Filed: 11/16/2020 12:19 PM Note Text: This note was created using NoteWriter. Subjective Rachel Aguiar is a 19 year old female. HPI Patient is a healthy nontoxic-appearing 19-year-old female with past medical history of anemia in , conjunctivitis, anxiety, cystic fibrosis carrier presents to the office today complaining of left eye redness. Patient states last night she noticed right becoming slightly red or when she woke up today was worse. Patient states she does have itching sensation and some light sensitivity with a gritty sensation to the left eye and a watery discharge. Patient denies any injuries trauma or falls. Patient denies any headache pain. Patient does complain of some blurry vision however states she does normally wear contacts. Patient states she has been unable to wear them due to the irritation to the left eye. Patient denies any ear pain, sore throat, chest pain, shortness of breath difficulty breathing. Patient denies any abdominal pain, nausea or vomiting. Patient denies any fever, shaking, or chills. Review of Systems Constitutional: Negative. HENT: Negative. Eyes: Positive for photophobia, discharge, redness and itching. Negative for pain and visual disturbance. Respiratory: Negative. Cardiovascular: Negative. Musculoskeletal: Negative. Skin: Negative. Neurological: Negative for headaches. Objective BP 108/64 Pulse 102 Temp 36.8 ?C (98.3 ?F) (Tympanic) Resp 16 Wt 101.2 kg (223 lb) LMP 04/19/2018 SpO2 98% Physical Exam Vitals and nursing note reviewed. Constitutional: General: She is not in acute distress. Appearance: Normal appearance. She is not ill-appearing, toxic-appearing or diaphoretic. HENT: Head: Normocephalic. Eyes: General: No scleral icterus. Right eye: No discharge. Left eye: Discharge present. Extraocular Movements: Extraocular movements intact. Pupils: Pupils are equal, round, and reactive to light. Cardiovascular: Rate and Rhythm: Normal rate and regular rhythm. Pulses: Normal pulses. Heart sounds: Normal heart sounds. No murmur heard. No friction rub. No gallop. Pulmonary: Effort: Pulmonary effort is normal. No respiratory distress. Breath sounds: Normal breath sounds. No stridor. No wheezing, rhonchi or rales. Chest: Chest wall: No tenderness. Musculoskeletal: General: Normal range of motion. Cervical back: Normal range of motion and neck supple. Skin: General: Skin is warm and dry. Capillary Refill: Capillary refill takes less than 2 seconds. Neurological: General: No focal deficit present. Mental Status: She is alert and oriented to person, place, and time. Assessment and Plan Given patient's complaint presentation thorough exam of the left eye was performed. Patient's left sclera is red and injected, right sclera is clear and normal-appearing, EOMs are intact bilaterally with no nystagmus diplopia, red light reflex is intact, patient shae neurologically intact no focal deficits, denies any headache pain, remains hemodynamically stable, I have low suspicion for acute intracranial process. Eye exam was performed with tetracaine, fluorescein and UV light. Eye exam reveals no dendritic lesions, no corneal abrasions, negative Max sign. Given patient is a contact wearer I do suspect patient is experiencing conjunctivitis, patient received prescription for tobramycin. Patient strongly encouraged follow primary care provider as needed as symptoms become worse go to emergency room for further evaluation. Patient was agreeable with this plan and discharged home in stable condition. Clint Hernandez APRN.WATERWORKS OPERATOR [facility] Summary Purpose Family History No Family History Records FoundNo Family History Records FoundNo Family History Records FoundNo Family History Records Found Advance Directives No Advanced Directives Records FoundNo Advanced Directives Records FoundNo Advanced Directives Records FoundNo Advanced Directives Records Found Additional Source Comments INFORMATION SOURCE (unrecogn ized section and content) DATE CREATED AUTHOR AUTHOR'S ORGANIZ ATION 01/07/2021 [facility] DATE CREATED AUTHOR AUTHOR'S ORGANIZ ATION 06/03/2021 [facility] DATE CREATED AUTHOR AUTHOR'S ORGANIZ ATION 05/27/2023 [facility] FOR RECORDS PERTAINING TO PATIENTS WHO ARE OR HAVE BEEN ENROLLED IN A CHEMICAL DEPENDENCY/SUBSTANCEABUSE PROGRAM, SOME INFORMATION MAY BE OMITTED. This clinical summary was aggregated from multiple sources. Caution should be exercised in using it in the provision of clinical care. This summary normalizes information from multiple sources, and as a consequence, information in this document may materially change the coding, format and clinical context of patient data. In addition, data may be omitted in some cases. CLINICAL DECISIONS SHOULD BE BASED ON THE PRIMARY CLINICAL RECORDS. [employer] [facility]. provides no warranty or guarantee of the accuracy or completeness of information in this document.
--- NOTE | 2023-07-16 02:58 | EDS_ITS ---
HPI History of Present Illness Chief Complaint: Hypertension Informant: patient Narrative Narrative: Patient is 22-year-old female with history of anxiety, currently 15 weeks 2 days presenting with episode of lightheadedness at work and elevated blood pressure reading. Patient states she works at a [employer] and she was working today when she felt lightheaded. She sat down and a nurse checked her blood sugar and BP. She states that her blood sugar was normal but her blood pressure was elevated 136/102. They continue to check it and went up. Patient went home and continue to check her blood pressure and continue to rise. Staff and patient's mother were concerned and recommend she come to the ER for further evaluation. Patient is feeling well now and denies any complaints at this time. Denies any urinary symptoms, vaginal bleeding, abnormal vaginal discharge, nausea or vomiting. Denies any chest pain or difficulty breathing. No other complaints or concerns at this time. HELPDESK ADMINISTRATOR care is through [place]. [facility] Medical History Acute pharyngitis, unspecified Anemia affecting Asthma Chlamydia infection affecting Supervision of normal Home Medications NK 07/16/23 [History Last Taken Unknown] Allergy/AdvReac Type Severity Reaction Status Date / Time amoxicillin trihydrate AdvReac Nausea Verified 07/16/23 01:22 [From Augmentin] potassium clavulanate AdvReac Nausea Verified 07/16/23 01:22 [From Augmentin] Family History Grandfather Cancer Lung Father Diabetes Mother Diabetes Surgical History History of placement of ear tubes Social History adopted: No household members: significant other, family and children housing: apartment number of children: 2 current occupational status: employed current occupation: WHEAT FARMER current occupational exposures/hazards: No pets and animals: Yes pets and animals: dog(s) history of recent travel: No sexually active: Yes Smoking Status: Current some day smoker tobacco type: cigarettes Tobacco: How many years used: 3 Electronic Cigarette Use: with nicotine second hand exposure: No quit status: quit date established counseling given: counseling >3 minutes alcohol intake: never substance use type: marijuana well-balanced diet: daily or most days caffeine: Yes Type: carbonated beverages Number of servings: 1 eating out: rarely or never during the past year weight has: remained stable what type of physical activity do you participate in: none lourdes/druze: None seatbelt use: always do you feel safe at home: Yes additional social history: BF: Nikolay Restrepo ([id number]) ROS ROS ED Constitutional Constitutional ED: Reports other Details: Lightheaded ; Denies chills or fever(s) Eyes Eyes: Denies blurry vision Cardiovascular Cardiovascular: Denies chest pain Respiratory/Chest Respiratory/Chest: Denies cough or dyspnea Gastrointestinal Gastrointestinal: Denies abdominal pain, nausea or vomiting Genitourinary Genitourinary ED: Reports other Details: 15 weeks 2 days ; Denies dysuria or hematuria Musculoskeletal Musculoskeletal: Denies arthralgias or myalgias Integumentary Denies rash Neurologic Neurologic: Denies headache(s) EXAM Physical Exam Const Vital Signs: 07/16/23 01:22 07/16/23 01:22 07/16/23 01:31 Temperature 98 F Temperature Source Temporal Pulse Rate 87 86 Respiratory Rate 18 16 Respiratory Effort Normal Respiratory Pattern Normal Blood Pressure 129/73 H 127/65 H Blood Pressure Mean 91 85 Pulse Ox 97 97 07/16/23 01:45 07/16/23 03:06 Temperature Temperature Source Pulse Rate 73 67 Respiratory Rate 16 18 Respiratory Effort Respiratory Pattern Blood Pressure 116/65 112/64 Blood Pressure Mean 82 80 Pulse Ox 97 99 Positive well nourished and well developed General Appearance ED: well developed and NAD HEENT Reports moist mucous membranes Eyes PERRL and EOMs intact bilaterally Neck supple and no JVD Chest Wall inspection of chest normal Resp normal respiratory effort and clear to auscultation bilaterally Cardio regular rate, regular rhythm and no murmurs GI normal to inspection, nondistended, normoactive bowel sounds and non-tender Palpation: Negative for guarding Extremity normal to inspection General Extremety ED: Negative for edema General Extremity: Negative for edema Neuro oriented x3 Sensorium / Orientation: alert Motor Exam: Negative for general weakness Psych mental status grossly normal Skin no rashes or lesions noted MDM MDM MDM Narrative Medical decision making narrative: Patient evaluated for an episode of lightheadedness at work and concern for a high blood pressure. Patient blood pressure is largely normal in the emergency room. Vital signs are normal. She is well-appearing. EKG obtained shows normal sinus rhythm with no significant arrhythmia or signs of strain. heart tones 148 patient is not having any symptoms at this time. At this time patient does not have hypertension and I suspect elevated blood pressure readings are either erroneous or possibly due to his stress response. She is too early on for preeclampsia. Given that she is asymptomatic now with normal vital signs normal EKG I feel that she can be discharged home and does not require further workup at this time. Patient agreeable with this plan of care. Rhythm Strip Rhythm Strip: Sinus Rhythm Rate: 78 Ectopy: None EKG Initial EKG: Attestation: I personally reviewed and interpreted this EKG as follows: Interpretation: Sinus Rhythm Comments: Normal sinus rhythm at a rate of 78 bpm with sinus arrhythmia, likely normal variant Normal axis Normal intervals Normal ST segments Discharge Plan Triage Chief Complaint: Hypertension ED Provider: Michelle Colindres Dx/Rx/DC Orders Clinical Impression: Intermittent lightheadedness, Normal blood pressure Instructions: ED Dizziness, Uncertain Cause Prescriptions: No Action NK Primary Care Provider: Care Physician,No Primary Referrals: Care Physician,No Primary [Primary Care Provider] - Activity Restrictions/Additional Instructions: Please follow-up with your HELPDESK ADMINISTRATOR. Your blood pressure and EKG are normal today. The exact cause of your lightheadedness is not clear however I think you are safe to go home and I suspect it is secondary to physiologic changes associated with . If you start having shortness of breath, difficulty breathing or chest pain please return to the emergency room. If you have an episode of syncope/passing out please return to the emergency room Disposition Disposition: Home, Self Care Discharge Date/Time: 07/16/23 03:09
[2023-07-16 03:06] VITALS: BP 112/64; PULSE 67; RESP 18; O2SAT 99
== END 2023-07-16 03:09 | disposition home or self-care (01) ==
PROVIDERS: Emergency Provider Emergency Medicine; Visit Provider Emergency Medicine
DX: O26.892 Other specified pregnancy related conditions, second trimester (principal); R42 Dizziness and giddiness; O99.332 Smoking (tobacco) complicating pregnancy, second trimester; F17.210 Nicotine dependence, cigarettes, uncomplicated; Z3A.15 15 weeks gestation of pregnancy
CPT/HCPCS: 93005; 99282

== ENCOUNTER → 2023-07-18 | Outpatient (CLI) | payer MEDICAID, SELFPAY ==
[2023-07-18 11:17] LABS: Absolute Lymphocyte Count 2.53 X10^3/uL (0.83-4.51); Absolute Neutrophil Count 7.3 X10^3/uL (2.0-7.7); Basophil# 0.03 X10^3/uL; Basophil% 0.3 % (0-1); Eosinophil# 0.07 X10^3/uL; Eosinophils% 0.7 % (0-5); Hematocrit 37.7 % (37-47); Hemoglobin 12.6 g/dL (12.0-15.0); Lymphocyte # 2.53 X10^3/ul (0.83-4.51); Lymphocyte % 23.8 % (19-41); Mean Corp Hgb Conc 33.4 g/dL (32-36); Mean Corpuscular Hgb 30.3 pg (27.0-32.0); Mean Corpuscular Volume 90.6 fL (81-99); Mean Platelet Vol. 11.1 fl (6.2-12.0); Monocyte# 0.63 X10^3/uL; Monocyte% 5.9 % (0-10); NRBC Flagged by Analyzer 0 % (0-5); Neutrophil % 68.7 % (47-70); Platelet Count 170 K/mm3 (150-450); RBC Distribution Width CV 13.3 % (11.6-14.6); RBC Distribution Width SD 43.7 fl (35.1-43.9); Red Blood Count 4.16 M/mm3 (4.2-5.4); White Blood Count 10.6 K/mm3 (4.4-11.0)
[2023-07-18 11:56] LABS: ALB/GLOB Ratio 0.8 RATIO (0.9-2.4); AST(SGOT) 9 U/L (15-37); Alanine Aminotransfer ALT/SGPT 15 U/L (13-56); Albumin, Serum 2.9 g/dL (3.2-5.0); Alkaline Phosphatase 67 U/L (45-117); Anion Gap 3 (5-15); BUN 9 mg/dL (7-18); BUN/Creat Ratio 18.2 RATIO (10-20); Calcium,Total 8.4 mg/dL (8.5-10.1); Chloride 111 mmol/L (98-107); Creatinine, Serum 0.49 mg/dL (0.55-1.02); EST Glomerular Filtration Rate 163 mL/min (>60); Est Glom Filt Rate - Afr Amer 197 mL/min (>60); Globulin 3.8 g/dL (2.2-4.2); Glucose 89 mg/dL (74-106); Potassium 3.6 mmol/L (3.5-5.1); Protein, Total 6.7 g/dL (6.4-8.2); Sodium Level 135 mmol/L (136-145)
[2023-07-18 12:26] LABS: HIV - WCH Non-Reactive (Nonreactive); Hepatitis B Surface Antigen Non-Reactive (Nonreactive); Hepatitis C Antibody Non-Reactive (Nonreactive); Rubella IgG Reactive (Nonreactive); Syphilis Antibodies Non-reactive
--- OUTSIDE RECORDS SUMMARY | 2023-07-18 13:35 | XMS RPT_ITS | CCD ---
Author Name Unknown Address [address] [place] [address] Organization [facility] Care Team Providers Care Wool Washer Feeder Name Role Phone Genet Link LPN Unavailable Tevin Sagastume Unavailable [phone] YANCI PATTERSON MD Consulting Unavailable STAR ELLINGTON Attending Unavailable STAR ELLINGTON Primary Care Unavailable STAR ELLINGTON Admitting Unavailable YANCI PATTERSON MD Referring Unavailable PROVIDER, UNKNOWN Consulting Unavailable Allergies Allergy Classification Reported Allergen(s) Allergy Type Date of Onset Reaction(s) Facility (1 source) Amoxicillin / Clavulanate Drug Allergy [facility] Repository Problems Problem Classification Problem Date Documented Da te Episodic/Chronic Medical examination/evaluation (2 sources) Encounter for pre-employment examination; Translations: [Encounter for pre-employment examination] Onset: 10-16-2016 10-16-2016 Episodic Results Test Name Value Interpretation Reference Range Facil ity Vital Signs Date Time Vital Sign Value Performing Clinician Faci lity 10-16-2016 14:03-0400 BMI (Body Mass Index) 32.59 kg/m2 Tevin PASTOR [facility] Work Phone: 10-16-2016 14:03-0400 Body Temperature 98.1 [degF] Tevin PASTOR [facility] Work Phone: 10-16-2016 14:03-0400 BP Diastolic 76 mm[Hg] Tevin PASTOR [facility] Work Phone: 10-16-2016 14:03-0400 BP Systolic 114 mm[Hg] Tevin Elmo PASTOR [facility] Work Phone: 10-16-2016 14:03-0400 Height 160.02 cm Tevin Borrego DARBY [facility] Work Phone: 10-16-2016 14:03-0400 Pulse (Heart Rate) 67 /min Tevin PASTOR [facility] Work Phone: 10-16-2016 14:03-0400 Pulse Oximetry 98 % Tevintessa PASTOR [facility] Work Phone: 10-16-2016 14:03-0400 Respiratory Rate 16 /min Tevin Elmo PASTOR [facility] Work Phone: 10-16-2016 14:03-0400 Weight 83.46 kg Tevin Posadasriley PASTOR [facility] Work Phone: Encounters Encounter Date Encounter Type Care Provider Facility Start: 05-26-2023 End: 05-26-2023 Emergency department patient visit YANCI WINN [facility] Procedures Date Procedure Procedure Detail Performing Clinician Start: 05-26-2023 Urinalysis YANCI KELLER Plan of Treatment Date Care Activity Detail Author Start: 10-16-2016 End: 10-16-2016 Appointment Appointment [facility] Work Phone: [facility] Work Phone: Payers Date Payer Category Payer Unknown [id number] Unknown [id number] Progress note 11-16-2020 Note Date & Type Note Facility 11-16-2020 Note HNO ID: [id number] Author: Clint Hernandez APRN.RUG DESIGNER Service: ? Author Type: Nurse Practitioner Type: [...] discharged home in stable condition. Clint Hernandez APRN.RUG DESIGNER [facility] Summary Purpose Family History No Family History Records FoundNo Family History Records FoundNo Family History Records FoundNo Family History Records Found Advance Directives No Advanced Directives Records FoundNo Advanced Directives Records FoundNo Advanced Directives Records FoundNo Advanced Directives Records Found Additional Source Comments INFORMATION SOURCE (unrecogn ized section and content) DATE CREATED AUTHOR AUTHOR'S ORGANIZ ATION 01/07/2021 [facility] DATE CREATED AUTHOR AUTHOR'S ORGANIZ ATION 06/03/2021 [facility] DATE CREATED AUTHOR AUTHOR'S ORGANIZ ATION 05/27/2023 [facility] FOR RECORDS PERTAINING TO PATIENTS WHO [...] BE BASED ON THE PRIMARY CLINICAL RECORDS. [employer] [facility]. provides no warranty or guarantee of the accuracy or completeness of information in this document.
== END | disposition home or self-care (01) ==
LOC: PAVLAB 10:55
PROVIDERS: Obstetrics & Gynecology; Referring Provider Advanced Practice Midwife; Visit Provider Advanced Practice Midwife
DX: O99.891 Other specified diseases and conditions complicating pregnancy (principal); R42 Dizziness and giddiness; Z3A.00 Weeks of gestation of pregnancy not specified
CPT/HCPCS: 36415; 80053; 85025; 86703; 86762; 86780; 86803; 86850; 86900; 86901; 87340

== ENCOUNTER 2023-11-05 07:02 | Outpatient (CLI) | payer MEDICAID, SELFPAY ==
[2023-11-05 07:33] VITALS: BMI 41.1
[2023-11-05 07:40] VITALS: BP 121/62; PULSE 86
--- NOTE | 2023-11-05 08:57 | US_ITS ---
STUDY: SECOND AND THIRD TRIMESTER OBSTETRICAL ULTRASOUND - LIMITED REASON FOR EXAM: Female, 22 years old routine survey, limited care LMP: Unknown. PRIOR ULTRASOUND: None. TECHNIQUE: Transabdominal TECHNICAL QUALITY: Adequate. FINDINGS: There is a single intrauterine fetus. The fetus is in a cephalic presentation. There is demonstrated cardiac activity with a heart rate of 133 bpm. There is a normal amniotic fluid volume. The largest amniotic fluid pocket measures 4.3 cm. The amniotic fluid index (SHE) is 14.41 cm. The placenta is anterior in location and is not low lying. There are Grade 0 placental changes. The cervix measures 3.87 cm in length. BIOMETRY: BPD: 7.45 cm: 29 weeks, 6 days HC: 27.53 cm: 30 weeks, 1 days AC: 25.56 cm: 29 weeks, 5 days FL: 5.61 cm: 29 weeks, 3 days age by current US: 29 weeks, 4 days. SUSHMA by current US: 01/17/2024. Estimated weight: 1450 grams, +/- 217 grams, 11.6 percentile. Gender: Indeterminant US/OB Limited With Biometrics IMPRESSION: Single live intrauterine at 29 weeks, 4 days by current ultrasound with SUSHMA of 01/17/2024. Heart rate at 133 bpm. No suspicious sonographic findings. However, weight percentage is only 11.5%. Electronically Signed: Keo Blake MD at 10:55 EDT ,
[2023-11-05 09:21] LABS: Color, Urine Yellow (Yellow); Glucose, Dipstick Normal (Normal); Ketone-Dipstick Negative (Negative); Leukocyte Esterase-Dipstick 500 /ul (Negative); Nitrite-Dipstick Negative (Negative); Occult Blood-Urine Negative /ul (Negative); Protein-Dipstick Negative (Negative); Urine Bilirubin Dipstick Negative (Negative); Urine Clarity Sl. Cloudy (Clear); Urine Urobilinogen Normal (Normal)
[2023-11-05 10:25] VITALS: BP 129/60; PULSE 77
--- NOTE | 2023-11-05 20:03 | OB.TRI.HP_ITS ---
HPI - General General Date of Admission: 11/05/23 Date of Service: 11/05/23 Chief Complaint: Back once an hour HPI Narrative RACHEL AGUIAR, is a 22 F who presents for persistent back pain that occurs once an hour. Has had limited PNC this . Initial labs completed but no GCT or anatomy. No contractions on toco and HR reassuring. US without abnormalities. Cervix closed. Patient instructed to call for OB appointment. Needs GCT and formal anatomy US Maternal Data Information SUSHMA Calculator Estimated Delivery Date Method Current WG Current Estimate 01/08/24 Ultrasound #1 30w 6d Other Estimates 01/05/24 LMP (Uncertain) 31w 2d Final SUSHMA: 01/08/24 Gestational age: 30+6 PFSH PFSH Medical History Normal blood pressure Asthma Anemia affecting Chlamydia infection affecting Supervision of normal Home Medications ?Medication ?Instructions ?Recorded ?Last Taken ?Type nifedipine 30 mg tablet,extended 30 mg PO DAILY #30 tabs 07/19/23 Unknown Rx release 24 hr (Procardia XL) Allergy/AdvReac Type Severity Reaction Status Date / Time amoxicillin trihydrate (From AdvReac Nausea Verified 07/16/23 01:22 Augmentin) potassium clavulanate (From AdvReac Nausea Verified 07/16/23 01:22 Augmentin) Family History Grandfather Cancer Lung Father Diabetes Mother Diabetes Surgical History History of placement of ear tubes Social History adopted: No household members: significant other, family and children housing: apartment number of children: 2 current occupational status: employed current occupation: [employer] current occupational exposures/hazards: No pets and animals: Yes pets and animals: dog(s) history of recent travel: No sexually active: Yes Smoking Status: Current some day smoker tobacco type: cigarettes Tobacco: How many years used: 3 Electronic Cigarette Use: with nicotine second hand exposure: No quit status: quit date established alcohol intake: never substance use type: marijuana well-balanced diet: daily or most days caffeine: Yes Type: carbonated beverages Number of servings: 1 eating out: rarely or never during the past year weight has: remained stable what type of physical activity do you participate in: none lourdes/cheondoism: None seatbelt use: always do you feel safe at home: Yes additional social history: BF: Nikolay Restrepo ([email or web address]) History 2 Elective abortions Hx Para 1 Spontaneous abortions Hx # Term Pregnancies Ectopic pregnancies Hx # Pregnancies Multiple births # of living children 1 Past Pregnancies Del. Date Name GA/Weeks Outcome Route Bth Weight Gen Labor Lgth Anesthesia Del Locatn Provider FOB 01/02/21 [facility] 41 live - full term 7#10oz Male epidural [facility] Visit Details Expected Delivery Route/Plan Labor Preferences- CB/BF classes: [] labor support person: [] labor intervention preferences: [] pain management options preferred: [] cut cord/dad catch: [] : [] PP control planned: [] discussed possible routes of delivery and associated risks: [] special requests: [] Plans Covid status: [] Flu vaccine: [] Tdap vaccine: [] Rhogam: [] LARC form signed: [] Problem list reviewed and updated with the most current plan of care details and appropriate orders placed. Relevant counseling for the gestational age provided. Continue routine care and follow up unless otherwise noted in visit notes/problem list details OB Flowsheet Initial Weight: Not Recorded Date -?-?-?-?-?-?-?-?-?-?-?-?- EGA Weight BP Urine Prot -?-?-?-?-?-?-?-?-?-?-?-?- Glucose FHR FuHt Pres Dilation -?-?-?-?-?-?-?-?-?-?-?-?- Effaced St Visit Note 06/11/23 -?-?-?-?-?-?-?-?-?-?-?-?- 9w 6d 92.986 kg 114/70 -?-?-?-?-?-?-?-?-?-?-?-?- 189 -?-?-?-?-?-?-?-?-?-?-?-?- JV- CRL consiste nt with prior SUSHMA and earlier us. desires NIPT. left our practice last at 32 weeks because was not happy with the provider (GP) 07/18/23 -?-?-?-?-?-?-?-?-?-?-?-?- 15w 1d 92.986 kg 135/93 117/73 Negative -?-?-?-?-?-?-?-?-?-?-?-?- Negative -?-?-?-?-?-?-?-?-?-?-?-?- KW- vb/cramping. Good movement and FHT noted with handheld US. US ordered. AFP discussed and declined. BPs will be taken at work until she can get a monitor through [facility]. Base line pre e labs ordered. precautions given to call in with ranges. RTO in 2 weeks for appt with physician . KW- no vb/cramping. Good mov ement and FHT noted with handheld US. formal US ordered. AFP discussed and declined. BPs elevated at work and went to ER with lightheadedness. was nl in ER. Discussed monitoring for the next few weeks and reporting back with bps. will be taken at work until she can get a monitor through [facility]. Base line pre e labs ordered. precautions given to call in with ranges. RTO in 2 weeks for appt with physician to review bps. NST FHR Rate Baby A Baseline: 120 Variability:: Moderate Accelerations:: 15 x 15 Decelerations:: None NST Reactive:: Yes FHR Category:: Category I Uterine Activity:: quiet Assessment & Plan (1) Back pain affecting : QUALIFIERS: Trimester: third trimester Qualified Code(s): O99.891 - Other specified diseases and conditions complicating ; M54.9 - Dorsalgia, unspecified (2) 30 weeks gestation of : (3) Limited care: QUALIFIERS: Trimester: third trimester Qualified Code(s): O09.33 - Supervision of with insufficient care, third trimester PLAN: Plan Needs to follow up as soon as possible to catch on up on labs and imaging. EFW 11.6 %
== END 2023-11-05 12:00 | disposition home or self-care (01) ==
LOC: WPOUT 07:08 → WP 07:09
PROVIDERS: Obstetrics & Gynecology; Referring Provider Obstetrics & Gynecology; Visit Provider Obstetrics & Gynecology
DX: O99.891 Other specified diseases and conditions complicating pregnancy (principal); M54.9 Dorsalgia, unspecified; O99.333 Smoking (tobacco) complicating pregnancy, third trimester; F17.210 Nicotine dependence, cigarettes, uncomplicated; Z3A.30 30 weeks gestation of pregnancy
CPT/HCPCS: 59025; 59050; 76816; 81002; 99221; G0378